=== PATIENT | female | born 1965 ===

== ENCOUNTER 2023-12-04 14:42 | Emergency (ER) | payer BC, OTHER ==
[~2023-12-04] VITALS: Ht 167.6 cm; Wt 91.0 kg
[2023-12-04 14:50] VITALS: O2SAT 99
[2023-12-04 17:45] VITALS: BP 120/67; PULSE 107; RESP 16; TEMP 98.2
[2023-12-04] MEDS: IBUPROFEN 400MG TABLET PO ONE (17:45)
[2023-12-04] MEDS: ACETAMINOPHEN 325MG TABLET PO ONE (17:45)
== END 2023-12-04 21:47 | disposition home or self-care (01) ==
LOC: ER 14:42
DX: S09.90XA Unspecified injury of head, initial encounter (principal); E11.9 Type 2 diabetes mellitus without complications; I10 Essential (primary) hypertension; Y08.89XA Assault by other specified means, initial encounter; Y93.89 Activity, other specified; Y92.89 Other specified places as the place of occurrence of the external cause; Y99.8 Other external cause status
CPT/HCPCS: 81025; 99284